=== PATIENT | female | born 1955 | race Caucasian/White ===

== ENCOUNTER 2016-10-13 23:10 | Emergency (ER) | payer OTHER, MEDICAID ==
[~2016-10-13 23:10] MED LIST: ASPIRIN PO; CITALOPRAM HBR10 MG; DETROL; DETROL LA; FAMOTIDINE PO; LIPITOR; LORTAB 5/500 TA1 TA1 PO; MEDROL; MIDRIN CAPSULE1 CAP; MIDRIN CAPSULE1 CAP PO; MULTI-VITAMIN1 TAB; SKELAXIN PO; VYTORIN 10/10 T1 TAB PO; WELLBUTRIN
== END 2016-10-14 00:40 | disposition home or self-care (01) ==
LOC: CFTX 23:10 → CED 23:10 → CFTX 23:59
DX: S51.852A Open bite of left forearm, initial encounter (principal); E78.00 Pure hypercholesterolemia, unspecified; F17.210 Nicotine dependence, cigarettes, uncomplicated; Z23 Encounter for immunization; W54.0XXA Bitten by dog, initial encounter; Y92.410 Unspecified street and highway as the place of occurrence of the external cause
CPT/HCPCS: 90471; 90715; 99283